=== PATIENT | male | born 1980 | race African-American/Black ===

== ENCOUNTER 2022-03-29 12:27 | Emergency (ER) | payer MEDICAID, SELFPAY ==
[2022-03-29 12:44] VITALS: BP 119/84; PULSE 101; RESP 20; TEMP 36.9; O2SAT 100
--- NOTE | 2022-03-29 14:29 | ED.EXTPRO ---
HPI - Extremity Problem General Chief complaint: Extremity Problem,Nontraumatic Stated complaint: inflammation bilaeral feet Time Seen by Provider: 03/29/22 14:08 History of Present Illness HPI Narrative: Patient is a 42-year-old male here for evaluation of numbness and tingling to the basis of his bilateral feet for the past 2-1/2 weeks. Patient states that his sensation came on gradually after sitting on his foot in an uncomfortable position. He was seen at [place] emergency room upon symptom onset, had a full work-up with labs and images that were unrevealing. He was diagnosed with neuropathy and discharged home with prescriptions for gabapentin and prednisone. 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 Presents today due to continued symptoms. He does not have a primary care doctor. Denies any back pain, saddle anesthesia, incontinence or retention of bowel or bladder, leg weakness. He is not a diabetic. Related Data Allergies Allergy/AdvReac Type Severity Reaction Status Date / Time No Known Allergies Allergy Verified 03/29/22 14:43 Review of Systems Review of Systems: Gen: Denies fevers or chills Eyes: Denies eye pain or visual change ENT: Denies congestion Respiratory: Denies shortness of breath or cough CV: Denies chest pain or palpitations GI: Denies abdominal pain nausea, emesis or diarrhea : denies burning, urgency, frequency or hematuria Musculoskeletal: Patient reports numbness and tingling to bilateral feet Neuro: Denies numbness, tingling, weakness or focal weakness Skin: Denies rash Except as documented, all other systems reviewed and negative Exam Narrative: APPEARANCE: Well appearing, no pain in distress, well-nourished. Head: Normocephalic and atraumatic. EYES: PERRLA/EOMI, conjunctivae clear NOSE: No nasal drainage EARS: External ear normal in appearance THROAT: Oropharynx is clear. Mucous membranes are moist. NECK: Supple. No adenopathy, no masses. RESPIRATORY: Airway patent, respirations nonlabored. Clear to auscultation bilaterally, no rales, rhonchi, wheezing. CARDIOVASCULAR: Regular rate and rhythm without murmurs, rubs, or gallops. ABDOMINAL: Normoactive bowel sounds. Soft, nontender, nondistended. No rebound tenderness or guarding. MUSCULOSKELETAL: No deformity noted to bilateral feet. Sensation intact throughout entire lower extremity. Feet are warm and well-perfused, no decreased range of motion. Extremities are warm and well-perfused. Moves all extremities well. No edema. NEURO: Normal speech. No focal neurologic deficits. SKIN: Skin is warm and dry. No rashes. PSYCHIATRIC: Normal affect/mood. Course Vital Signs Vital signs: Vital Signs Temperature 98.4 F 03/29/22 12:44 Pulse Rate 101 H 03/29/22 12:44 Respiratory Rate 20 03/29/22 12:44 Blood Pressure 119/84 03/29/22 12:44 Pulse Oximetry 100 03/29/22 12:44 Oxygen Delivery Room Air 03/29/22 12:44 Temperature 98.4 F 03/29/22 12:44 Pulse Rate 101 H 03/29/22 12:44 Respiratory Rate 20 03/29/22 12:44 Blood Pressure 119/84 03/29/22 12:44 Pulse Oximetry 100 03/29/22 12:44 Oxygen Delivery Room Air 03/29/22 12:44 MDM - Extremity (Nontraumatic) MDM Narrative Medical decision making narrative: 42-year-old male here for evaluation of numbness and tingling to the bottom of his feet for the past 2 and half weeks, seen at outside hospital and was diagnosed with neuropathy but has not yet picked up his prescriptions. Vital signs normal, sensation intact throughout lower extremities. Feet are warm and well-perfused. No back pain, weakness, saddle anesthesia or other red flags. This is likely neuropathy, patient did have extensive work-up at outside hospital according to him and declines more work-up today. He will be discharged home with primary care follow-up and gabapentin. Discharge Plan Discharge Clinical Impression: Neuropathy Patient Disposition
[2022-03-29] MEDS: GABAPENTIN 300 MG CAPSULE PO (14:54)
== END 2022-03-29 15:00 | disposition home or self-care (01) ==
LOC: ANHED 14:46
PROVIDERS: Emergency Provider Physician Assistant
DX: G62.9 Polyneuropathy, unspecified (principal)
CPT/HCPCS: 99283; A9270